=== PATIENT | female | born 1960 | race Caucasian/White ===

== ENCOUNTER → 2017-03-18 14:14 | Outpatient (CLI) | payer OTHER, SELFPAY ==
--- NOTE | 2017-03-18 14:20 | MM_ITS ---
MM Dig screening mamm BI w/CAD CAD Screening COMPARISON: Digital mammograms 02/07/2015 and 2016 INDICATION: There is a history of breast cancer patient paternal grandmother and paternal aunt. There has been a previous biopsy for benign disease right breast TECHNIQUE: Standard CC and MLO images were obtained. R2 CAD reviewed. FINDINGS: Prominent heterogenic fibroglandular densities are seen in the central portions of both breasts and the findings are bilateral and symmetrical. There are few benign-appearing calcifications in each breast and again noted are 2 biopsy clips right breast. There is no suspicious lesion and no suspicious microcalcifications. IMPRESSION: Stable exam no suspicious lesion seen BI-RADS Category: 2 Benign Finding(s) RECOMMENDED FOLLOW-UP: 1YR - 1 YEAR FOLLOW-UP (A letter has been sent to the patient regarding results of the study.)
== END ==
PROVIDERS: Family Provider Internal Medicine; PCP Internal Medicine; Visit Provider Internal Medicine
DX: Z12.31 Encounter for screening mammogram for malignant neoplasm of breast (principal)
CPT/HCPCS: 77067

== ENCOUNTER → 2018-05-21 16:29 | Outpatient (CLI) | payer BC, SELFPAY ==
--- NOTE | 2018-05-21 16:33 | MM_ITS ---
MM Dig screening mamm BI w/CAD ORDERING PHYSICIAN : Ash Paul PATIENT AGE: 57 years GENDER: Female COMPARISON: March 2017, 2016, January 2015 and 2013. INDICATION: Routine screening mammogram. No new complaints. Previous stereotactic biopsy & benign biopsy right breast. A scar is indicated to be at 10 o'clock position on history sheet Family history. Paternal grandmother. Paternal aunt with breast cancer TECHNIQUE: Standard CC and MLO images were obtained. R2 CAD reviewed. Additional axillary cc view included. Apparently this mammogram was not attended to previously and was set aside. Dr. Vilchis has been aware and now requested to complete the report FINDINGS: Bed of fairly dense breast tissue fills the centra lcone of Both right & left breast.This diffuse moderate density decreases sensitivity of mammography. Decrease sensitivity mammography. Remaining lumbar . LEFT BREAST:The left breast appears stable with no new findings. Diffusely dense breast tissue on left. RIGHT BREAST: We again see numerous dense calcifications throughout the right breast. . numerous dense benign appearing calcifications throughout the right breast. Likely related to fibroadenoma or fibrocystic disease. . 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 2 metallic marker clip are seen at the right breast reflecting prior stereotactic biopsies: one at the lateral breast and the other at the deep medial breast. Majority of these dense discrete calcifications are stable- but there has been slight progression of the group of these calcifications in the area labeled A. At the medial retroareolar region.. There also seems to be a slightly more evident nodular density associated these calcifications.-Which measures measures up to 7.5 mm.. I strongly favor this reflect merely a slowly progressing fibroadenoma, particularly given the pattern of dense calcifications. However to be cautious suggest cc MLO spot views along with a full 90 degree view & ultrasound to further evaluate this specific area; ultrasound will also be useful to survey the entire breast to compliment/augment mammography given fairly dense character of breast tissue. IMPRESSION: Right breast . slight progression of dense most likely benign calcifications noted and associated with a slightly more evident 7.5 mm vague nodule at the medial retroareolar region. By far this Most likely this is a slowly progressing benign fibroadenoma, but would benefit from spot views and ultrasound to further evaluate. Left breast is stable. Follow-up in one year adequate. BI-RADS Category: 0 Need Additional Imaging Evaluation RECOMMENDED FOLLOW-UP: IMM - IMMEDIATE FOLLOW-UP RECOMMENDED Spot views and ultrasound right breast (A letter has been sent to the patient regarding results of the study.)
== END ==
PROVIDERS: PCP Internal Medicine; Referring Provider Internal Medicine; Visit Provider Internal Medicine
DX: Z12.31 Encounter for screening mammogram for malignant neoplasm of breast (principal)
CPT/HCPCS: 77067

== ENCOUNTER → 2018-06-10 13:37 | Outpatient (CLI) | payer BC, SELFPAY ==
--- NOTE | 2018-06-10 13:40 | MM_ITS ---
MM Dig mamm DX unilat RT CAD, US breast RT complete INDICATION: Follow-up abnormal mammogram ORDERING PHYSICIAN: Ash Paul PATIENT AGE: 57 years COMPARISON: None TECHNIQUE: Spot compression views obtained along with right breast ultrasound FINDINGS: Very dense fibroglandular tissue which decreases the sensitivity of mammography. Previously noted benign-appearing calcifications are once again seen. Specifically, the cluster in the medial aspect of the right breast is examined with spot compression views and appears to be benign. Would recommend 6 month follow-up to confirm short-term stability. No malignant appearing mass or malignant appearing microcalcification is evident. There is a small nodule on edge of the film on the MLO view superiorly with coarse calcifications probably due to developing fibroadenoma. This measures 2 to 3 mm. Right breast ultrasound: At 12:00 there is a cystic nodule at 7 x 5 mm containing a small calcification may be due to a small fibroadenoma. No malignant characteristics. Suggest 6 month follow-up. Small nodes are present in the axilla. IMPRESSION: Benign findings. No convincing evidence of malignancy.. Recommend 6 month mammographic and sonographic follow-up BI-RADS Category: 3 Probably Benign Finding Short Term Follow-up RECOMMENDED FOLLOW-UP: 6M - 6 MONTH FOLLOW-UP (A letter has been sent to the patient regarding results of the study.)
== END ==
PROVIDERS: PCP Internal Medicine; Visit Provider Internal Medicine
DX: N63.10 Unspecified lump in the right breast, unspecified quadrant (principal)
CPT/HCPCS: 76641; 77065

== ENCOUNTER → 2018-12-24 14:45 | Outpatient (CLI) | payer BC, SELFPAY ==
--- NOTE | 2018-12-24 14:48 | MM_ITS ---
PROCEDURE: MM DIG MAMM DX UNILAT RT CAD CLINICAL INDICATION: 6 mo fu COMPARISON: [facility] MM Dig screening mamm BI w/CAD from 05/21/2018 DIG MAMM-DX UNI-RT from 06/10/2018 TECHNIQUE: Standard CC and MLO images were obtained. R2 CAD reviewed. FINDINGS: Again noted is dense heterogenic parenchymal pattern central portion the breast. There is a biopsy clip outer quadrant. There are multiple benign-appearing micro and macrocalcifications. The small cluster of microcalcifications medial breast are stable unchanged from previous exam in June of this year. For note new microcalcifications seen. There is no definite architectural distortion. IMPRESSION: Stable heterogenic breast parenchyma with stable benign-appearing micro and microcalcifications with no suspicious lesions seen and recommend the patient return to normal yearly screening schedule BI-RAD Category: 2 Benign Finding(s) FOLLOW-UP: 6M 6Month Follow-up to return to normal yearly screening schedule (A letter has been sent to the patient regarding results of the study.) Dictated by: Dr. Wilfredo Pratt MD 12/29/2018 14:[address] Wilfredo Pratt MD in [place] 12/29/2018 14:45
--- NOTE | 2018-12-24 14:49 | US_ITS ---
PROCEDURE: US BREAST RT COMPLETE CLINICAL INDICATION: 6+ MO FU COMPARISON: BREASTRT US breast RT complete from 06/10/2018 MM DIG MAMM DX UNILAT RT CAD from 12/24/2018 FINDINGS: Hypoechoic nodule once again noted at 12 o'clock near the nipple. This contains a calcification anteriorly with some posterior acoustical shadowing which may be related to the calcification and the location behind the nipple. This is not significantly changed. There was an additional hypoechoic area at 9 x 5 mm. This was felt to be due to fibroglandular tissue on further imaging.. Please see mammogram report from the same day. IMPRESSION: No change in the hypoechoic nodule at 12 o'clock near the nipple with some posterior acoustical shadowing as described above. Probably benign. Recommend continued six-month sonographic follow-up Dictated by: Hoang Ortiz MD 12/31/2018 11:18 Electronically signed by Hoang Ortiz MD in [place] 12/31/2018 11:18
== END ==
PROVIDERS: PCP Internal Medicine; Visit Provider Internal Medicine
DX: R92.8 Other abnormal and inconclusive findings on diagnostic imaging of breast (principal)
CPT/HCPCS: 76641; 77065

== ENCOUNTER → 2019-06-27 13:01 | Outpatient (CLI) | payer OTHER, SELFPAY ==
--- NOTE | 2019-06-27 13:09 | MM_ITS ---
PROCEDURE: MM DIG SCREENING MAMM BI W/CAD Digital Breast Tomosynthesis Included CLINICAL INDICATION: 6 MONTH F/U right breast and screening exam left breast there is a history of breast cancer patient's paternal grandmother and paternal aunt. There has been a previous biopsy right breast for benign disease. COMPARISON: [facility] MM Dig screening mamm BI w/CAD from 05/21/2018 DIG MAMM-DX UNI-RT from 06/10/2018 MM DIG MAMM DX UNILAT RT CAD from 12/24/2018 US BREAST RT COMPLETE from 12/24/2018 US BREAST RT COMPLETE from 06/27/2019 TECHNIQUE: Standard CC and MLO images and 3D Tomosynthesis was obtained. R2 CAD reviewed. FINDINGS: Dense and somewhat heterogenic fibroglandular densities are seen in the central portions of both breasts. Jose images are helpful in this type of breast parenchyma. There is a stable nodular density with associated microcalcifications at approximately the 12 o'clock position right breast. Ultrasound performed the same complex, possibly post traumatic in etiology. There are benign-appearing micro and macrocalcifications in each breast stable unchanged from previous exams. The biopsy clip is again noted upper-outer quadrant right breast. There is no suspicious lesion and no suspicious microcalcifications. There is a small low-lying node in each axilla. IMPRESSION: Stable dense heterogenic parenchymal pattern and stable probable complex cyst right breast BI-RAD Category: 2 Benign Finding(s) FOLLOW-UP: 1YR 1 Year Follow-up (A letter has been sent to the patient regarding results of the study.) Dictated by: Dr. Wilfredo Pratt MD 06/28/2019 12:[address] Wilfredo Pratt MD in [place] 06/28/2019 12:25
--- NOTE | 2019-06-27 13:11 | US_ITS ---
PROCEDURE: US BREAST RT COMPLETE CLINICAL INDICATION: 6 MONTH F/U COMPARISON: US BREAST RT COMPLETE from 12/24/2018 FINDINGS: Again noted is a hypoechoic cystic lesion 12 o'clock position near the nipple with internal microcalcifications causing acoustic shadowing. The lesion measures 0.9 by 0.7 x 0.7 cm basically unchanged in size from the previous ultrasound exam the member 2018. The surrounding breast parenchyma shows a somewhat diffuse heterogenic echogenicity consistent with the dense fibrocystic type changes on the mammogram. There are couple normal appearing nodes in the axilla as noted previously. IMPRESSION: Basically stable complex cyst with what may represent dystrophic calcifications suggesting possible previous traumatic etiology and recommend the patient continue with yearly screening mammography. If the patient notices any change in this lesion on self exams and possibly another follow-up ultrasound could be performed. Dictated by: Dr. Wilfredo Pratt MD 06/28/2019 12:[address] Wilfredo Pratt MD in [place] 06/28/2019 12:41
== END ==
PROVIDERS: PCP Internal Medicine; Visit Provider Internal Medicine
DX: Z12.39 Encounter for other screening for malignant neoplasm of breast (principal)
CPT/HCPCS: 76641; 77063; 77067

== ENCOUNTER → 2019-08-30 12:46 | Outpatient (POV) | payer OTHER, SELFPAY | PROVIDERS: PCP Internal Medicine; Visit Provider Dermatology | DX: Z00.00 Encounter for general adult medical examination without abnormal findings (principal) ==

== ENCOUNTER → 2020-07-11 12:55 | Outpatient (CLI) | payer OTHER, SELFPAY ==
--- NOTE | 2020-07-11 12:58 | MM_ITS ---
PROCEDURE INFORMATION: Exam: MG Screening 3D Mammography Exam date and time: 07/11/2020 12:58 PM Age: 59 years old Clinical indication: Encounter for screening mammogram for malignant neoplasm of breast TECHNIQUE: Imaging protocol: Screening tomosynthesis and 2D mammography including computer-aided detection (CAD) when performed. COMPARISON: 1. MG MM DIG SCREENING MAMM BI W/CAD 06/27/2019 1:20 PM 2. MG MM DIG MAMM DX UNILAT RT CAD 12/24/2018 2:58 PM FINDINGS: MAMMOGRAPHY: Breast composition: The breast tissue is extremely dense, limiting the sensitivity of mammography. Mass: None. Architectural distortion: None. Calcifications: No suspicious calcifications. Asymmetric density: None. Skin thickening: None. Axillary adenopathy: None. IMPRESSION: No mammographic evidence of malignancy. Annual screening is recommended unless otherwise clinically indicated. ASSESSMENT: BI-RADS Category 1: Negative
== END ==
PROVIDERS: PCP Internal Medicine; Visit Provider Internal Medicine
DX: Z12.31 Encounter for screening mammogram for malignant neoplasm of breast (principal)
CPT/HCPCS: 77063; 77067

== ENCOUNTER → 2021-09-17 13:22 | Outpatient (CLI) | payer OTHER, SELFPAY ==
--- NOTE | 2021-09-17 13:26 | MM_ITS ---
PROCEDURE INFORMATION: Exam: MG Bilateral Screening 3D Mammography Exam date and time: 09/17/2021 1:24 PM Age: 61 years old Clinical indication: Screening examination TECHNIQUE: Imaging protocol: Bilateral Screening tomosynthesis and 2D mammography including computer-aided detection (CAD) when performed. COMPARISON: 1. MG MM DIG SCREENING MAMM BI W/CAD 07/11/2020 1:07 PM 2. MG MM DIG SCREENING MAMM BI W/CAD 06/27/2019 1:20 PM FINDINGS: MAMMOGRAPHY: Breast composition: The breasts are extremely dense, which lowers the sensitivity of mammography. Mass: None. Architectural distortion: None. Calcifications: No suspicious calcifications. Asymmetric density: None. Skin thickening: None. Axillary adenopathy: None. IMPRESSION: No mammographic evidence of malignancy. Annual screening is recommended unless otherwise clinically indicated. ASSESSMENT: BI-RADS Category 1: Negative
== END ==
PROVIDERS: PCP Internal Medicine; Visit Provider Internal Medicine
DX: Z12.31 Encounter for screening mammogram for malignant neoplasm of breast (principal)
CPT/HCPCS: 77063; 77067

== ENCOUNTER → 2022-02-07 13:50 | Outpatient (CLI) | payer OTHER, SELFPAY ==
[2022-02-07 15:13] LABS: Basophils % 0.7 % (0.1-2.0); Eosinophils # 0.1 K/mm3 (0.0-0.4); Hematocrit 39.2 % (37.0-47.0); Hemoglobin 12.9 g/dL (12.2-16.2); Lymphocytes # 1.8 K/mm3 (0.7-4.5); Lymphocytes % 35.1 % (10-50); Mean Corpuscular HGB Conc 32.9 g/dL (31.8-35.4); Mean Corpuscular Hemoglobin 29.9 pg (27.0-31.2); Mean Corpuscular Volume 90.9 fl (81-99); Mean Platelet Volume 8.5 fl (7.4-10.4); Monocytes # 0.3 K/mm3 (0.1-1.0); Monocytes % 5.6 % (1.7-9.3); Neutrophils # 2.9 K/mm3 (1.8-7.8); Neutrophils % 56.5 % (37.0-80.0); Platelet Count 280 K/mm3 (142-424); Red Blood Count 4.31 M/mm3 (4.20-5.40); Red Cell Distribution Width 13.8 % (11.5-17.5)
[2022-02-07 15:48] LABS: Alanine Aminotransferase 10 U/L (12-78); Albumin Level 4.3 g/dl (3.5-5.0); Albumin/Globulin Ratio 1.7 (1.1-1.8); Alkaline Phosphatase 70 U/L (38-126); Anion Gap 14.1 mEq/L (5-15); Aspartate Amino Transferase 22 U/L (14-36); Bilirubin,Total 0.3 mg/dl (0.2-1.3); Blood Urea Nitrogen 14 mg/dl (7-17); Calcium 8.7 mg/dl (8.4-10.2); Carbon Dioxide 29 mmol/L (22.0-30.0); Chloride 103 mmol/L (98-107); Chol/HDL Ratio 3.8 (1-3.5); Cholesterol 195 mg/dl (140-200); Estimated Glomerular Filt Rate 85 ml/min (>60); GFR (African American) 102 ML/MIN (>60); Globulin 2.5 g/dL (1.3-3.2); Glucose 76 mg/dl (74-100); HDL Cholesterol 51 mg/dl (40-60); Potassium 4.1 mmoL/L (3.5-5.1); Sodium 142 mmol/L (136-145); Total Protein,Serum 6.8 g/dl (6.3-8.2); Triglycerides 101 mg/dl (30-150); VLDL Cholesterol 20 mg/dL (0-40)
[2022-02-07 15:59] LABS: Direct LDL Cholesterol 93.98 mg/dL (100-129)
[2022-02-07 16:18] LABS: Thyroid Stimulating Hormone 2.07 uIU/mL (0.465-4.68)
== END ==
PROVIDERS: PCP Internal Medicine; Visit Provider Internal Medicine
DX: I10 Essential (primary) hypertension (principal); E03.9 Hypothyroidism, unspecified; E78.5 Hyperlipidemia, unspecified; M17.0 Bilateral primary osteoarthritis of knee
CPT/HCPCS: 80053; 80061; 84443; 85025

== ENCOUNTER 2022-04-10 07:45 | Day surgery (SDC) | payer OTHER, SELFPAY ==
[2022-04-10 07:59] VITALS: BP 151/96; PULSE 91; RESP 18; TEMP 36.8; O2SAT 94; BMI 33.6
[2022-04-10 08:54] VITALS: O2SAT 94
--- NOTE | 2022-04-10 09:09 | HMH.SCOPE ---
Procedure: Date: 04/10/22 Patient Date of :: 1960 Procedure Performed:: Screening colonoscopy Indications:: Personal history of polyps Performing Provider:: Amol Ansari MD Referring Provider:: Ash Paul Sedation:: Propofol Procedure:: After placing the patient in the left lateral decubitus position, the colonoscopy was gently inserted into the rectum and under direct visualization advanced to the cecum which was identified by transillumination in the right lower quadrant, identification of the ileocecal valve, appendiceal orifice, and cecal strap. Color, texture, mucosa, and anatomy of the colon were carefully examined with the scope. Findings:: Anal canal: normal Rectum: normal Sigmoid colon: normal without polyps or inflammatory changes Descending colon: normal without polyps or inflammatory changes Splenic flexure: normal Transverse colon: normal without polyps or inflammatory changes Hepatic flexure: normal Ascending colon: normal without polyps or inflammatory changes Cecum: normal Terminal ileum: not visualized Impression: Normal colonoscopy Recommendations:: Repeat screening examination in about FIVE years or so in view of history of polyps Complications:: None Estimated blood obtained (mL): 0
[2022-04-10 09:14] VITALS: BP 121/73; PULSE 78; RESP 15; TEMP 36.6; O2SAT 95
[2022-04-10 09:24] VITALS: BP 129/88; PULSE 88; RESP 16; O2SAT 94
--- NOTE | 2022-04-10 09:25 | P.PN_ITS ---
[facility] Disclaimer: The information contained in this section may have been updated after the patient was seen, as this information can be updated by other users. Medical History (Updated 04/10/22 @ 08:03 by Jaz Beonit RN) Colonoscopy planned Hemorrhoid History of anemia Hypertension Hypothyroid Surgical History (Updated 04/10/22 @ 08:03 by Jaz Benoit RN) H/O tubal ligation History of surgery on arm Family History (Updated 04/10/22 @ 08:03 by Jaz Benoit RN) Other Family history of hyperlipidemia Heart disease Social History (Updated 04/10/22 @ 08:04 by Jaz Benoit RN) Smoking Status: Never smoker alcohol intake: never substance use type: denies use current occupational status: employed Travel in the last 8 weeks: None household members: spouse housing: house marital status: education level: high school current occupational exposures/hazards: No caffeine: Yes special wes needs: No agree to transfusion: No do you feel safe at home: Yes victim of physical abuse: No victim of emotional abuse: No victim of sexual abuse: No would you like helpful sources: No [facility] Anesthesia Checklist Patient Identification Patient Identification: Verbal (Name & ) Structural Data Admitted From: Home Planned Operative Procedure/s: colonoscopy Consent for Planned Operative Procedure(s) Verified: Yes Airway Assessment C-Spine Mobility Assessed: Yes TMJ Mobility Assessed: Yes Dentition: Good Dentition Neurological Assessment Level of Consciousness: Awake, Alert and Appropriate Anesthesia Plan Anesthesia Risk discussed: Yes Anesthesia Plan: Verified ASA Class: II Anesthesia Type: MAC
[2022-04-10 09:34] VITALS: BP 146/79; PULSE 90; RESP 17; O2SAT 95
[2022-04-10 09:44] VITALS: BP 142/81; PULSE 84; RESP 16; O2SAT 94
== END 2022-04-10 09:53 | disposition home or self-care (01) ==
PROVIDERS: PCP Internal Medicine; Visit Provider Internal Medicine Gastroenterology
PROC: 0DJD8ZZ Inspection of Lower Intestinal Tract, Via Natural or Artificial Opening Endoscopic (ICD-10-PCS; CPT 45378; principal; 2022-04-10 09:00)
DX: Z12.11 Encounter for screening for malignant neoplasm of colon (principal); Z79.899 Other long term (current) drug therapy
CPT/HCPCS: 45378

== ENCOUNTER → 2022-09-19 15:33 | Outpatient (CLI) | payer OTHER, SELFPAY ==
--- NOTE | 2022-09-19 15:37 | MM_ITS ---
PROCEDURE INFORMATION: Exam: MG Bilateral Screening 3D Mammography Exam date and time: 09/19/2022 3:29 PM Age: 62 years old Clinical indication: Screening examination TECHNIQUE: Imaging protocol: Bilateral Screening tomosynthesis and 2D mammography including computer-aided detection (CAD) when performed. COMPARISON: 1. MG MM DIG SCREENING MAMM BI W/CAD 09/17/2021 1:24 PM 2. MG MM DIG SCREENING MAMM BI W/CAD 07/11/2020 1:07 PM FINDINGS: MAMMOGRAPHY: Breast composition: The breasts are extremely dense, which lowers the sensitivity of mammography. Mass: None. Architectural distortion: None. Calcifications: No suspicious calcifications. Asymmetric density: None. Skin thickening: None. Axillary adenopathy: None. IMPRESSION: No mammographic evidence of malignancy. Annual screening is recommended unless otherwise clinically indicated. ASSESSMENT: BI-RADS Category 1: Negative
== END ==
PROVIDERS: PCP Internal Medicine; Visit Provider Internal Medicine
DX: Z12.31 Encounter for screening mammogram for malignant neoplasm of breast (principal)
CPT/HCPCS: 77063; 77067

== ENCOUNTER 2023-10-30 14:45 | Outpatient (CLI) | payer MEDICARE, OTHER, SELFPAY ==
--- NOTE | 2023-10-30 14:46 | MM_ITS ---
PROCEDURE INFORMATION: Exam: MG Bilateral Screening 3D Mammography Exam date and time: 10/30/2023 2:35 PM Age: 63 years old Clinical indication: Screening examination; Additional info: Mammogram . Family history of breast carcinoma. History of benign right breast biopsy. TECHNIQUE: Imaging protocol: Bilateral Screening tomosynthesis and 2D mammography including computer-aided detection (CAD) when performed. COMPARISON: 1. MG MM DIG SCREENING MAMM BI W/CAD 09/19/2022 3:29 PM 2. MG MM DIG SCREENING MAMM BI W/CAD 09/17/2021 1:24 PM 3. MG MM DIG SCREENING MAMM BI W/CAD 07/11/2020 1:07 PM FINDINGS: MAMMOGRAPHY: Breast composition: The breasts are extremely dense, which lowers the sensitivity of mammography. Mass: No suspicious masses. Architectural distortion: No suspicious distortion. Biopsy clip noted in the right upper outer quadrant. Calcifications: No suspicious calcifications. Asymmetric density: None. Skin thickening: None. Axillary adenopathy: None. IMPRESSION: No mammographic evidence of malignancy. Annual screening is recommended unless otherwise clinically indicated. ASSESSMENT: BI-RADS Category 2: Benign.
== END 2023-10-30 23:59 | disposition home or self-care (01) ==
LOC: RAD 14:46
PROVIDERS: PCP Internal Medicine; Visit Provider Internal Medicine
DX: Z12.31 Encounter for screening mammogram for malignant neoplasm of breast (principal)
CPT/HCPCS: 77063; 77067

== ENCOUNTER 2024-11-09 12:44 | Outpatient (CLI) | payer MEDICARE, OTHER, SELFPAY ==
--- NOTE | 2024-11-09 13:00 | MM_ITS ---
PROCEDURE INFORMATION: Exam: MG Bilateral Screening 3D Mammography Exam date and time: 11/09/2024 12:58 PM Age: 64 years old Clinical indication: Screening. Her paternal grandmother and paternal aunt had breast cancer. TECHNIQUE: Imaging protocol: Bilateral Screening tomosynthesis and 2D mammography including computer-aided detection (CAD) when performed. COMPARISON: 1. MG MM DIG SCREENING MAMM BI W/CAD 10/30/2023 2:35 PM 2. MG MM DIG SCREENING MAMM BI W/CAD 09/19/2022 3:29 PM 3. MG MM DIG SCREENING MAMM BI W/CAD 09/17/2021 1:24 PM 4. MG MM DIG SCREENING MAMM BI W/CAD 07/11/2020 1:07 PM FINDINGS: MAMMOGRAPHY: Breast composition: The breasts are extremely dense, which lowers the sensitivity of mammography. Mass: None. Architectural distortion: None. Calcifications: No suspicious calcifications. Asymmetric density: None. Skin thickening: None. Axillary adenopathy: None. IMPRESSION: No mammographic evidence of malignancy. Annual screening is recommended unless otherwise clinically indicated. ASSESSMENT: BI-RADS Category 1: Negative.
== END 2024-11-09 23:59 | disposition home or self-care (01) ==
LOC: RAD 12:45
PROVIDERS: PCP Internal Medicine; Visit Provider Internal Medicine
DX: Z12.31 Encounter for screening mammogram for malignant neoplasm of breast (principal); R92.343 Mammographic extreme density, bilateral breasts; Z80.3 Family history of malignant neoplasm of breast
CPT/HCPCS: 77063; 77067